=== PATIENT | male | born 2000 | race Hispanic/Latino ===

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

== ENCOUNTER 2018-01-02 09:34 | Emergency (ER) | payer OTHER | END 2018-01-02 10:40 | disposition home or self-care (01) | LOC: ERS 09:34 | DX: L05.91 Pilonidal cyst without abscess (principal); F41.9 Anxiety disorder, unspecified; F31.9 Bipolar disorder, unspecified; F90.9 Attention-deficit hyperactivity disorder, unspecified type | CPT/HCPCS: 99282 ==

== ENCOUNTER 2018-11-09 00:47 | Emergency (ER) | payer OTHER | END 2018-11-09 03:37 | disposition home or self-care (01) | LOC: ERS 00:47 | DX: L02.415 Cutaneous abscess of right lower limb (principal); I10 Essential (primary) hypertension; F31.9 Bipolar disorder, unspecified; F41.9 Anxiety disorder, unspecified; F90.9 Attention-deficit hyperactivity disorder, unspecified type; G47.00 Insomnia, unspecified; Z79.899 Other long term (current) drug therapy | CPT/HCPCS: 99282 ==

== ENCOUNTER 2019-03-15 14:52 | Emergency (ER) | payer MEDICARE, MEDICAID ==
[2019-03-15 16:34] LABS: #Eosinphils 0.2 thou/uL (0.0-0.7); #Lymphocytes 2.3 thou/uL (1.20-3.40); #Monocytes 1.5 thou/uL (0.11-0.59); #Neutrophils 10.5 thou/uL (1.40-6.50); %Basophils 0.2 % (0.0-1.0); %Eosinophils 1.2 % (0.0-10.0); %Lymphocytes 15.8 % (21.0-51.0); %Monocytes 10.4 % (0.0-10.0); %Neutrophils 72.4 % (42.0-75.0); Hemoglobin 17.4 g/dL (14.0-18.0); Mean Corpuscular Hemoglobin 31.1 pg (27.0-31.0); Mean Corpuscular Volume 91.4 fL (78.0-98.0); Platelet Count 376 thou/uL (130-400); RBC Distribution Width 11.8 % (11.5-14.5); Red Blood Cell (RBC) Count 5.61 mill/uL (4.70-6.10); White Blood Cell (WBC) Count 14.5 thou/uL (4.8-10.8)
[2019-03-15 16:56] LABS: ALT (SGPT) 20 U/L (8-55); AST (SGOT) 16 U/L (5-34); Alkaline Phosphatase 75 U/L (40-150); Anion Gap 13 mmol/L (10-20); BUN (Urea Nitrogen) 10 mg/dL (8.9-20.6); Bilirubin, Total 0.9 mg/dL (0.2-1.2); Calc. Creatinine Clearance 0 mL/min (70-130); Calcium 10.2 mg/dL (7.8-10.44); Carbon Dioxide 28 mmol/L (22-29); Chloride 101 mmol/L (98-107); Estimated GFR-MDRD Greater than 90; Globulin 2.6 g/dL (2.4-3.5); Glucose 103 mg/dL (70-105); Protein, Total 7.6 g/dL (6.0-8.3); Sodium 138 mmol/L (136-145)
--- NOTE | 2019-03-18 14:49 | EKG ---
Test Reason : Blood Pressure : / mmHG Vent. Rate : 099 BPM Atrial Rate : 099 BPM P-R Int : 148 ms QRS Dur : 088 ms QT Int : 328 ms P-R-T Axes : 027 011 021 degrees QTc Int : 420 ms Normal sinus rhythm Inferior infarct , age undetermined Cannot rule out Anterior infarct , age undetermined Abnormal ECG Confirmed by DANI CAMPOS M.D. ([id number]), senior technical editor EDY RICH ([id number]) on 03/18/2019 2:49:30 PM Referred By: Confirmed By:DANI CAMPOS M.D.
== END 2019-03-15 17:15 | disposition left against medical advice (07) ==
LOC: ERS 14:52
DX: Z53.21 Procedure and treatment not carried out due to patient leaving prior to being seen by health care provider (principal)
CPT/HCPCS: 36415; 80053; 85025; 93005; 94760

== ENCOUNTER 2021-08-02 13:01 | Emergency (ER) | payer MEDICARE, MEDICAID | END 2021-08-02 15:14 | disposition home or self-care (01) | LOC: ERS 13:01 | DX: L98.8 Other specified disorders of the skin and subcutaneous tissue (principal); L73.9 Follicular disorder, unspecified; I10 Essential (primary) hypertension; Z79.899 Other long term (current) drug therapy | CPT/HCPCS: 99282 ==

== ENCOUNTER 2021-09-12 18:28 | Emergency (ER) | payer MEDICARE, MEDICAID | END 2021-09-12 18:58 | disposition home or self-care (01) | LOC: ERS 18:28 | DX: N49.2 Inflammatory disorders of scrotum (principal); N50.89 Other specified disorders of the male genital organs; I10 Essential (primary) hypertension; Z79.899 Other long term (current) drug therapy | CPT/HCPCS: 99283 ==

== ENCOUNTER 2024-06-13 09:40 | Emergency (ER) | payer OTHER, MEDICAID ==
[2024-06-13] MEDS ORDERED: Acetaminophen 500 MG TAB ONE (11:07)
[2024-06-13] MEDS ORDERED: Proparacaine 0.5% Opth 15 ML BOT ONE (11:10)
[2024-06-13] MEDS ORDERED: Fluorescein Opthalmic Strip ONE (11:11)
== END 2024-06-13 11:52 | disposition home or self-care (01) ==
LOC: ERS 09:40
DX: R51.9 Headache, unspecified (principal); H53.8 Other visual disturbances; I10 Essential (primary) hypertension
CPT/HCPCS: 99283